=== PATIENT | female | born 2000 | race Caucasian/White ===

== ENCOUNTER → 2018-02-23 22:14 | Observation (INO) ==
[2018-02-23 19:55] VITALS: BP 111/62
[2018-02-23 20:08] LABS: Bilirubin,Urine Negative (Negative); Blood,Urine Negative (Negative); Clarity,Urine Cloudy (Clear); Color,Urine Yellow (Yellow); Glucose,Urine (UA) Normal (Normal); Ketones,Urine Trace mg/dL (Negative); Leukocyte Esterase,Urine Trace (Negative); Nitrite,Urine Negative (Negative); PH,Urine 6.5 pH Units (5.0-8.0); Protein,Urine Negative (Neg-Trace); Specific Gravity,Urine 1.023 (1.010-1.025); Urobilinogen,Urine Normal (Normal)
[2018-02-23 20:10] LABS: Bacteria,Urine None Seen per hpf (None-Few); Hyaline Casts,Urine None Seen per lpf (None-Few); Squamous Epithelial Cell,Urine Many per lpf (None-Few)
[2018-02-23 21:16] LABS: Amphetamine Screen,Urine Negative ng/mL (Cutoff=1000); Barbiturate Screen,Urine Negative ng/mL (Cutoff=200); Benzodiazepines Screen,Urine Negative ng/mL (Cutoff=200); Cannabinoid Screen,Urine Negative ng/mL (Cutoff = 50); Cocaine Screen,Urine Negative ng/mL (Cutoff= 300); Opiate Screen,Urine Negative ng/mL (Cutoff=300); Phencyclidine Screen,Urine Negative ng/mL (Cutoff=25)
--- NOTE | 2018-02-23 22:05 | OB/GYN Progress Note ---
Date of Encounter: 02/23/18 Time of Encounter: 22:03 - Assessment and Plan (1) 30 weeks gestation of Current Visit: Yes Status: Acute Follow-up in office as scheduled labor precautions given Discharge home (2) PUPP (pruritic urticarial papules and plaques of ) Current Visit: Yes Status: Acute Prescription for prednisone taper given (3) Vaginal candidiasis Current Visit: Yes Status: Acute Prescription for Monistat given (4) [place] contractions Current Visit: Yes Status: Acute (5) NST (non-stress test) reactive on surveillance Current Visit: Yes Status: Acute Subjective - Subjective Principal diagnosis: vaginal candidiasis/PEP Interval history: Ms. Benson is a 18-year-old G1 who presents at 30 weeks gestation with complaints of a rash on her belly that is spreading to her stretch spears. She has previously been diagnosed with PEP and has tried oral Benadryl and over-the- counter cortisone cream without relief. She also complains of BHC 2 weeks. She also complains of right-sided pelvic pain. She also complains of leakage of fluid for the last 2-3 days without an odor. She endorses good movement and denies vaginal bleeding. Antepartum ROS: new complaints, loss of fluid, movement normal, contractions, no vaginal bleeding Objective - Vital Signs Vital Signs: Vital Signs Temp Pulse Resp BP 02/23/18 19:50 99.0 F 95 15 111/62 Intake and Output 02/23/18 02/23/18 02/23/18 07:59 15:59 23:59 Other: Weight 88.5 kg Patient Weight 02/23/18 23:59 Weight 88.5 kg - Exam FHR: category 1 FHR comments: Baseline 140 Moderate variability Accelerations present 15 x 15 Rare variable decelerations FHR category I [place] contraction every 7-10 minutes. Patient reports she feels only about 1 every 20-30 minutes Auscultation: bilateral: normal Abdomen: Present: normal appearance, soft, gravid Uterus: Present: normal, firm - Labs Labs: Abnormal lab results Urine Clarity Cloudy (Clear) A 02/23/18 19:57 Urine Ketones Trace mg/dL (Negative) H 02/23/18 19:57 Ur Leukocyte Esterase Trace (Negative) H 02/23/18 19:57 Urine Microscopic RBC 3-5 per hpf (0-3) H 02/23/18 19:57 Urine Microscopic WBC 3-5 per hpf (0-3) H 02/23/18 19:57 Ur Squamous Epith Cells Many per lpf (None-Few) H 02/23/18 19:57 Ur Culture Indicated? NO. (NO) A 02/23/18 19:57
== END | disposition home or self-care (01) ==
LOC: 1NENULAB
PROVIDERS: ADMIT Advanced Practice Midwife; ATTEND Advanced Practice Midwife

== ENCOUNTER 2018-04-05 14:35 | Observation (INO) ==
[2018-04-05 15:32] LABS: Bilirubin,Urine Negative (Negative); Blood,Urine Negative (Negative); Clarity,Urine Clear (Clear); Color,Urine Yellow (Yellow); Glucose,Urine (UA) Normal (Normal); Ketones,Urine Negative (Negative); Leukocyte Esterase,Urine Trace (Negative); Nitrite,Urine Negative (Negative); PH,Urine 6.5 pH Units (5.0-8.0); Protein,Urine Negative (Neg-Trace); Specific Gravity,Urine 1.016 (1.010-1.025); Urobilinogen,Urine Normal (Normal)
[2018-04-05 15:38] LABS: Bacteria,Urine Few per hpf (None-Few); Hyaline Casts,Urine None Seen per lpf (None-Few); RBC,Urine 0-3 per hpf (0-3); Squamous Epithelial Cell,Urine Many per lpf (None-Few)
[2018-04-05 15:54] LABS: Amphetamine Screen,Urine Negative ng/mL (Cutoff=1000); Barbiturate Screen,Urine Negative ng/mL (Cutoff=200); Benzodiazepines Screen,Urine Negative ng/mL (Cutoff=200); Cannabinoid Screen,Urine Negative ng/mL (Cutoff = 50); Cocaine Screen,Urine Negative ng/mL (Cutoff= 300); Opiate Screen,Urine Negative ng/mL (Cutoff=300); Phencyclidine Screen,Urine Negative ng/mL (Cutoff=25)
--- NOTE | 2018-04-05 17:13 | OB/GYN Progress Note ---
Date of Encounter: 04/05/18 Time of Encounter: 17:11 - Assessment and Plan (1) Encounter for suspected PROM, with rupture of membranes not found Status: Acute Nitrazine negative, ferning negative, cervix closed, no painful contractions during triage evaluation. Discharged home with labor and when to return to triage precautions. Patient verbalizes understanding (2) 36 weeks gestation of Status: Acute Subjective - Subjective Interval history: 36+0 weeks gestation presents to triage with complaints of contractions and leaking of fluid. Since states she has been having irregular tightening with occasional back pain is early this morning. On the way here patient states she noted a small amount of leaking of fluid but none further. Reports good movement, denies vaginal bleeding Antepartum ROS: loss of fluid, movement normal, contractions, no vaginal bleeding Objective - Vital Signs Vital Signs: Intake and Output 04/05/18 04/05/18 04/05/18 07:59 15:59 23:59 Other: Weight 92.1 kg Patient Weight 04/05/18 23:59 Weight 92.1 kg - Exam FHR: auscultation normal FHR comments: Baseline 135 Abdomen: Present: normal appearance, soft, gravid Cervical dilation: Closed - Labs Labs: Abnormal lab results Ur Leukocyte Esterase Trace (Negative) H 04/05/18 15:15 Urine Microscopic WBC 3-5 per hpf (0-3) H 04/05/18 15:15 Ur Squamous Epith Cells Many per lpf (None-Few) H 04/05/18 15:15 Ur Culture Indicated? NO. (NO) A 04/05/18 15:15
== END 2018-04-05 16:27 | disposition home or self-care (01) ==
LOC: 1NENULAB
PROVIDERS: ADMIT Obstetrics & Gynecology; ATTEND Obstetrics & Gynecology

== ENCOUNTER 2018-04-27 11:42 | Inpatient (IN) ==
[2018-04-27] MEDS ORDERED: miSOPROStol 25 MCG TABLET PO PRN (11:55)
[2018-04-27] MEDS ORDERED: Metoclopramide 10 MG/2 ML VIAL IVP PRN (11:55)
[2018-04-27] MEDS ORDERED: Naloxone 0.4 MG/ML INJ IVP PRN (11:55)
[2018-04-27] MEDS ORDERED: Famotidine 20 MG/2 ML VIAL IVP PRN (11:55)
[2018-04-27 13:11] LABS: Amphetamine Screen,Urine Negative ng/mL (Cutoff=1000); Barbiturate Screen,Urine Negative ng/mL (Cutoff=200); Benzodiazepines Screen,Urine Negative ng/mL (Cutoff=200); Cannabinoid Screen,Urine Negative ng/mL (Cutoff = 50); Cocaine Screen,Urine Negative ng/mL (Cutoff= 300); Opiate Screen,Urine Negative ng/mL (Cutoff=300); Phencyclidine Screen,Urine Negative ng/mL (Cutoff=25)
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
[2018-04-27 13:23] LABS: Basophils # 0.1 K/mcL (0.0-0.2); Basophils % 0.5 %; Eosinophils # 0.1 K/mcL (0.0-0.6); Eosinophils % 0.6 %; Hematocrit 35.5 % (35.3-44.9); Hemoglobin 12.1 g/dL (11.5-15.4); Immature Granulocytes % 2.5 % (0-4); Lymphocytes # 2.5 K/mcL (0.6-4.6); Lymphocytes % 17.9 %; Mean Corpuscular HGB Conc 34.1 g/dL (31.6-35.5); Mean Corpuscular Hemoglobin 29.7 pg (28.0-33.3); Mean Platelet Volume 11.2 fL (9.4-12.4); Monocytes # 1.1 K/mcL (0.0-1.3); Monocytes % 7.8 %; Neutrophils # 9.9 K/mcL (1.6-8.9); Platelet Count 231 K/mcL (140-400); Red Blood Count 4.08 M/mcL (3.82-4.97); Red Cell Distribution Width 14.8 % (11.5-14.5); Segmented Neutrophils % 70.7 %
[2018-04-27] MEDS: Ringers Solution, Lactated 1,000 ML IVC SCH (13:50)
[2018-04-27] MEDS ORDERED: Oxytocin 20 units/ LR 1000 mL 20 UNIT/1,000 ML BAG IVC SCH (21:15)
[2018-04-27] MEDS: Ondansetron 4 MG/2 ML VIAL IVP PRN (21:21)
[2018-04-27] MEDS: *HR* Nalbuphine 10 MG/ML AMPUL IVP PRN (21:25)
[2018-04-28] MEDS: *HR* Nalbuphine 10 MG/ML AMPUL IVP PRN (01:50)
[2018-04-28] MEDS: Ondansetron 4 MG/2 ML VIAL IVP PRN (03:33)
[2018-04-28] MEDS: Ringers Solution, Lactated 1,000 ML IVC SCH ×3 (03:34→13:10)
[2018-04-28] MEDS ORDERED: *HR* FentaNYL (PF) 100 MCG/2 ML VIAL ONE (04:20)
[2018-04-28] MEDS ORDERED: Bupivacaine-MPF 0.25% 10 ML VIAL ONE (04:20)
[2018-04-28] MEDS ORDERED: Epidural Premix (fent/bupiv) 110 ML EP ONE (04:23)
[2018-04-28] MEDS ORDERED: Lidocaine -MPF 1% 5 ML AMPUL ONE (04:30)
[2018-04-28] MEDS ORDERED: Bupivacaine-MPF 0.25% 10 ML VIAL EP ONE (04:52)
[2018-04-28] MEDS ORDERED: *HR* FentaNYL (PF) 100 MCG/2 ML VIAL EP ONE (04:52)
--- NOTE | 2018-04-28 04:55 | Anesthesia Evaluation PreOp ---
Date of Encounter: 04/28/18 Time of Encounter: 04:30 - Past History Planned Operation: Labor Epidural Cardiac History: Denies any Significant Hx Pulmonary History: Denies Any Significant HX SYNCHRONOUS MOTOR ASSEMBLER History: Denies Any Significant HX Other Medical History: Denies Any Significant HX Anesthesia History: No Prior Anesthetic Complications : Yes (39 weeks ) Alcohol Use: none Drug use: none Medications and Allergies [place] 2 tab PO DAILY 04/05/18 [History] Zofran ODT 4 mg PO PRN PRN 04/05/18 [History] 3 Allergy/AdvReac Type Severity Reaction Status Date / Time No Known Allergies Allergy Verified 04/27/18 12:11 - Meds/Allergy Pre-op Review Medications Reviewed: Yes Allergies Reviewed: Yes Beta Blockers on Current Med List: No Anesthesia Results - Labs 04/27/18 13:07 Laboratory Tests 01/07/18 04/27/18 02:24 13:07 Hgb 12.1 Hct 35.5 Plt Count 231 Sodium 140 Potassium 3.8 BUN 5 L Creatinine 0.52 L Anesthesia Exam O2 Sat Height 1.65 m Weight 94.7 kg Height: 5'5 Weight: 208 lbs NPO (# of Hours): MN Pain Scale: 0 - HEENT Pupil (Motor): Pupils equal, EOMI Mallampati: II Teeth: Normal Oral Opening: Greater than 3 - SYNCHRONOUS MOTOR ASSEMBLER LOC: Oriented SYNCHRONOUS MOTOR ASSEMBLER Motor: Normal RUE, Normal LUE, Normal RLE, Normal LLE, Normal Face SYNCHRONOUS MOTOR ASSEMBLER Sensory: Normal: RUE, LUE, RLE, LLE, Face - Cardiac Rhythm: Regular Murmur: None JVD: No Carotid Bruit: No - Pulmonary Breath Sounds: bilateral Clear Respiratory Effort: Symmetrical Anesthesia Assess/Plan ASA Score: 2 Modified Halliday Scale for Level of Consciousness: Cooperative, oriented, and tranquil Anesthetic Plan: Regional Monitoring Plan: Standard Monitors Recovery Plan: Other (Discussed LE, risks and benefits, agrees to proceed)
--- NOTE | 2018-04-28 04:58 | Anesthesia Procedures ---
Date of Encounter: 04/28/18 Time of Encounter: 04:30 Procedures: Anesthesia - Epidural/Spinal Patient ID/Chart reviewed: Yes Patient examined: Yes OB Eval: Gestational age: 39 weeks OB Eval: : 1 OB Eval: Hx Para: 0 OB Eval: Dilated at (cm): 4 OB Eval: Contractions: Non-stressed pattern Consent Obtained: Yes Supplemental Oxygen: None/Room Air Site Prep: Aseptic Technique, Sterile prep and drape, Povidone-Iodine 1% Patient position: upright Local Anesthetic: Lidocaine 1% Amount of Local Anesthetic used: 3 Touhy Needle Gauge: 19 Touhy Needle Depth (cm): 4 Catheter Depth at Skin (cm): 5 Test Dose Result: Negative Loading Dose: 0.25% Marcaine (mls): 10 Loading Dose: Fentanyl (mcg): 100 Loading Dose Administered: Thru Touhy Needle Infusion Med: 0.125% Bupivacaine w/ 2 mcg/ml Fentanyl Infusion Rate (mls/hr): [address]: Tegaderm Interspace Used: L3-L4 Loss of Resistance (FLAQUITA): Yes Blood: No CSF: No Paresthesia: No Procedure: Patient sitting, sterile prep and drape, midline Patient tolerated procedure well
[2018-04-28] MEDS ORDERED: Epidural Premix (fent/bupiv) 110 ML EP SCH (05:00)
[2018-04-28] MEDS ORDERED: Mag Hydrox/Al Hydrox/Simeth 30 ML UDC PO PRN (06:17)
--- NOTE | 2018-04-28 12:02 | OB Labor Progress Note ---
Date of Encounter: 04/28/18 Time of Encounter: 12:05 Labor Progress Note - Subjective Subjective: Pt comfortable with epidural. - Cervix Cervix: 6/80/-2 - Heart Tones Heart Tones: FHR Category I - [place]: Contractions every 3-5 minutes and palpate strong - Interventions Interventions: AROM - large amount of clear fluid IUPC placed - Plan Plan: Increase pitocin to adequate contraction pattern. Continue position changes with peanut ball Anticipate
--- NOTE | 2018-04-28 18:14 | OB/GYN Procedure Note ---
Delivery - Delivery Date: 04/28/18 Provider: Leanna Cornejo Intrapartum events: prolonged labor- > = 20hr Delivery induction: oxytocin, misoprostol Delivery augmentation: rupture of membranes Delivery monitor: external FHT, external uterine, internal uterine Anesthesia: epidural Quantitated Blood Loss: 400 - Infant (s) Infant A Delivery Date: 04/28/18 Infant Delivery Time: 17:33 Presentation: vertex Position: OA Route of delivery: Gender: Female Viability: Viable Pounds: 9 Ounces: 6 Weight Gram: 4.255 kg at 1 minute: 8 at 5 mins: 9 Shoulder Dystocia: not encountered Specimens collected: cord blood Placenta: spontaneous Cord: 3 umbilical vessels - Repair Episiotomy: none Laceration Description: Periurethral (hemostatic), Vaginal (left - repaired with 3.0; right vaginal hemostatic) - Complications Delivery complications: none Delivery comments: This is a 18-year-old G1 now P1 who was admitted for induction of labor secondary to suspected macrosomia. She progressed with Pitocin augmentation and AROM to the second stage of labor. She pushed for an hour and a half. She delivered a viable, female infant, "Domi", direct OA over an intact perineum. The infant was placed on the maternal abdomen where the mouth and nares were bulb suctioned by nursery RN. The cord was clamped by test fixture assembler and cut by FOB after pulsations ceased. No nuchal cord was identified and no shoulder dystocia was encountered. scores were 8 at 1 minute and 9 at 5 minutes. The weighed 9 lbs. 6 oz. (4255g). The placenta delivered spontaneously, intact, with a three-vessel cord. Inspection revealed a left vaginal laceration requiring repair and a right vaginal laceration that was hemostatic. The left vaginal laceration was repaired with a 3-0 Vicryl. The uterus was firm with no active bleeding. The repair was done under epidural anesthesia. EBL was 400 mL. Placenta and umbilical artery blood gas were not sent. There were no complications during the procedure. Mom and baby are skin to skin following delivery. - Disposition Mom disposition: stable in LDR [place] disposition: stable in LDR
[2018-04-28] MEDS ORDERED: Rho Immune Globulin 1,500 UNIT SYRINGE IM PRN (20:21)
[2018-04-28] MEDS ORDERED: Acetaminophen 325 MG TABLET PO PRN (20:21)
[2018-04-28] MEDS ORDERED: Sennosides 8.6 MG TABLET PO PRN (20:21)
[2018-04-28] MEDS ORDERED: Benzocaine/Menthol 56 GM AEROSOL SPRAY TP PRN (20:21)
[2018-04-28] MEDS ORDERED: Oxytocin 20 units/ LR 1000 mL 20 UNIT/1,000 ML BAG IVC SCH (20:21)
[2018-04-28] MEDS: Ibuprofen 600 MG TABLET PO SCH (21:05)
[2018-04-28] MEDS: *HR* HYDROcodone/Acet 5/325 mg TABLET PO PRN (23:40)
[2018-04-29] MEDS: Ibuprofen 600 MG TABLET PO SCH (03:46)
[2018-04-29 07:29] LABS: Basophils # 0.1 K/mcL (0.0-0.2); Basophils % 0.3 %; Eosinophils # 0.1 K/mcL (0.0-0.6); Eosinophils % 0.6 %; Hematocrit 35.8 % (35.3-44.9); Immature Granulocytes % 0.9 % (0-4); Lymphocytes # 3.1 K/mcL (0.6-4.6); Lymphocytes % 16.4 %; Mean Corpuscular HGB Conc 33.5 g/dL (31.6-35.5); Mean Corpuscular Hemoglobin 29.3 pg (28.0-33.3); Mean Corpuscular Volume 87.5 fL (83.0-100.0); Mean Platelet Volume 11.3 fL (9.4-12.4); Monocytes # 1.9 K/mcL (0.0-1.3); Monocytes % 10.3 %; Neutrophils # 13.4 K/mcL (1.6-8.9); Platelet Count 235 K/mcL (140-400); Red Blood Count 4.09 M/mcL (3.82-4.97); Segmented Neutrophils % 71.5 %
[2018-04-29] MEDS: *HR* HYDROcodone/Acet 5/325 mg TABLET PO PRN ×2 (08:45→15:58)
[2018-04-29] MEDS ORDERED: Prenatal Vit/FA 1 EACH TABLET PO SCH (09:00)
--- NOTE | 2018-04-29 10:57 | Discharge Summary ---
Date of Encounter: 04/29/18 Time of Encounter: 10:55 - Discharge Diagnosis (1) Vaginal delivery Priority: Primary Status: Acute Comments: Pain well controlled with by mouth pain meds Vital signs stable Ambulating independently Voiding independently Passing flatus, no BM yet Tolerating regular diet Lochia medium Discharge home today (2) Breast feeding status of mother Priority: Secondary Status: Acute Comments: Community resources provided - Discharge Medications Prescriptions: HYDROcodone/Acet 5/325 mg [[place] 5-325 mg] 1 tab PO Q6HR PRN 2 Days #8 tablet PRN Reason: Moderate Pain (4-6) Ibuprofen [Motrin] 600 mg PO Q6HR #30 tablet Docusate [Colace] 100 mg PO BID #30 capsule Home Medications: [place] 2 tab PO DAILY 04/05/18 [History] Acetaminophen [Tylenol] 650 mg PO Q6HR PRN tablet 04/29/18 [Rx] Benzocaine/Menthol [place] [Dermoplast [place]] 1 appl TP QID PRN aerosol 04/29/18 [Rx] Docusate [Colace] 100 mg PO BID #30 capsule 04/29/18 [Rx] HYDROcodone/Acet 5/325 mg [[place] 5-325 mg] 1 tab PO Q6HR PRN 2 Days #8 tablet [Rx] Ibuprofen [Motrin] 600 mg PO Q6HR #30 tablet 04/29/18 [Rx] Allergies/Adverse Reactions: 3 Allergy/AdvReac Type Severity Reaction Status Date / Time No Known Allergies Allergy Verified 04/27/18 12:11 Data Procedures and tests throughout hospitalization: Laboratory Tests 04/27/18 04/27/18 04/29/18 12:33 13:07 07:00 WBC 13.9 H 18.7 H RBC 4.08 4.09 Hgb 12.1 12.0 Hct 35.5 35.8 MCV 87.0 87.5 MCH 29.7 29.3 MCHC 34.1 33.5 RDW 14.8 H 15.0 H Plt Count 231 235 MPV 11.2 11.3 Immature Gran % 2.5 0.9 Seg Neutrophils % 70.7 71.5 Lymphocytes % 17.9 16.4 Monocytes % 7.8 10.3 Eosinophils % 0.6 0.6 Basophils % 0.5 0.3 Neutrophils # 9.9 H 13.4 H Lymphocytes # 2.5 3.1 Monocytes # 1.1 1.9 H Eosinophils # 0.1 0.1 Basophils # 0.1 0.1 Urine Opiates Screen Negative Ur Barbiturates Screen Negative Ur Phencyclidine Scrn Negative Ur Amphetamines Screen Negative U Benzodiazepines Scrn Negative Urine Cocaine Screen Negative U Marijuana (THC) Screen Negative Ur Drug Screen Interp See Below Labs on day of discharge: Labs from last 24 hours 04/29/18 07:00 WBC 18.7 H RBC 4.09 Hgb 12.0 Hct 35.8 MCV 87.5 MCH 29.3 MCHC 33.5 RDW 15.0 H Plt Count 235 MPV 11.3 Immature Gran % 0.9 Seg Neutrophils % 71.5 Lymphocytes % 16.4 Monocytes % 10.3 Eosinophils % 0.6 Basophils % 0.3 Neutrophils # 13.4 H Lymphocytes # 3.1 Monocytes # 1.9 H Eosinophils # 0.1 Basophils # 0.1 Date of admission: 04/27/18 11:42 Primary care physician: Temo Siegel CNP Consults: 04/28/18 20:21 Consult to Steward/Stewardess Third [CONS] Routine Comment: Vaginal delivery, consult needed Discharging clinician: Leanna Cornejo Anticipated date of discharge: 04/29/18 - Patient Status Disposition: Home, Self-Care Condition: Good Functional capacity at discharge: independent ambulation Overall status at discharge: patient is progressing back to baseline - Discharge Instructions Follow Up With: Kim Zepeda CNM [Non-Partnered Physician] - 05/29/18 4:00 pm - Diet and Activity Activity: increase activity as tolerated Diet: regular diet Hospital Course Procedures: Reason for admission: induction of labor, IUP at term Delivery: Episiotomy: none Laceration: vaginal side wall Other procedures: none complications: none Discharge diagnosis: IUP at term delivered baby: female Time Attestation: Total time spent providing and/or coordinating discharge services: Time Spent: Less than 30 minutes Exam - Constitutional Vitals: Temp Pulse Resp BP Pulse Ox 98.2 F 100 16 86/63 97 04/29/18 09:06 04/29/18 09:06 04/29/18 09:06 04/29/18 09:06 08/05/18 09:06 General appearance IM: A&O X 3 - Respiratory Respiratory exam: Present: CTAB - Cardiovascular Cardiovascular exam IM: Present: RRR, +S1, +S2 - GI/Abdominal GI/Abdominal exam IM: normal bowel sounds, no peritoneal signs - Rectal Rectal exam: deferred - Uterine Tone: Firm Uterus Position: 1 Finger Below Umbilicus, Midline - Extremities Exam Extremities exam IM: Present: normal capillary refill, normal inspection, pedal edema, radial pulses palpable and symmetrical - Neurological Exam Neurological exam: alert, CN II-XII intact, normal gait, oriented X3, reflexes normal, strengths equal and symetr throughout - Psychiatric Additional comments: S/sx of PPD discussed with patient and she verbalizes understanding of when to call for help. - Other Additional findings: Breasts: soft, nontender. Nipples intact without erythema.
[2018-04-29 16:27] VITALS: BP 102/73
== END 2018-04-29 17:38 | disposition home or self-care (01) | DRG 775 ==
LOC: 1NENULAB 11:42 → 1NENUOBS 04-28 21:09
PROVIDERS: ADMIT Obstetrics & Gynecology; ATTEND Obstetrics & Gynecology

== ENCOUNTER → 2021-03-04 12:20 | Observation (INO) ==
[2021-03-04 01:27] LABS: Bacteria,Urine Few per hpf (None-Few); Bilirubin,Urine Negative (Negative); Blood,Urine Negative (Negative); Clarity,Urine Turbid (Clear); Color,Urine Light-Yellow (Yellow); Glucose,Urine (UA) Normal (Normal); Ketones,Urine Negative (Negative); Leukocyte Esterase,Urine Moderate (Negative); Mucus,Urine Few per lpf (None-Few); Nitrite,Urine Negative (Negative); Protein,Urine Negative (Neg-Trace); RBC,Urine 0-3 per hpf (0-3); Specific Gravity,Urine 1.009 (1.010-1.025); Squamous Epithelial Cell,Urine Moderate per hpf (None-Few); Transitional Epi Cells,Urine Few per hpf (None-Few); Urobilinogen,Urine Normal (Normal); WBC,Urine 0-3 per hpf (0-3)
[2021-03-04 02:34] LABS: Basophils # 0.1 K/mcL (0.0-0.2); Basophils % 0.4 %; Eosinophils # 0.2 K/mcL (0.0-0.6); Hemoglobin 11.1 g/dL (11.5-15.4); Immature Granulocytes % 2.1 % (0-4); Lymphocytes # 2.9 K/mcL (0.6-4.6); Lymphocytes % 18.4 %; Mean Corpuscular HGB Conc 32.6 g/dL (31.6-35.5); Mean Corpuscular Hemoglobin 30.5 pg (28.0-33.3); Mean Corpuscular Volume 93.4 fL (83.0-100.0); Mean Platelet Volume 10.8 fL (9.4-12.4); Monocytes # 1.1 K/mcL (0.0-1.3); Neutrophils # 11.1 K/mcL (1.6-8.9); Platelet Count 193 K/mcL (140-400); Red Blood Count 3.64 M/mcL (3.82-4.97); Red Cell Distribution Width 13.9 % (11.5-14.5); Segmented Neutrophils % 71.1 %; White Blood Count 15.7 K/mcL (4.3-11.1)
[2021-03-04 02:52] LABS: Trichomonas DNA Not Detected (Not Detect)
[2021-03-04 02:53] LABS: Candida DNA Not Detected (Not Detect); Gardnerella DNA Not Detected (Not Detect)
[2021-03-04 02:54] LABS: Alanine Aminotransferase 7 Units/L (7-52); Albumin 3.4 g/dL (3.5-5.7); Albumin/Globulin Ratio 1.4 (1.1-2.2); Alkaline Phosphatase 44 Units/L (34-104); Aspartate Amino Transferase 10 Units/L (13-39); BUN/Creatinine Ratio 9 (6-26); Bilirubin,Total 0.3 mg/dL (0.3-1.0); Blood Urea Nitrogen 4 mg/dL (6-20); Calcium 8.8 mg/dL (8.6-10.3); Carbon Dioxide 21 mEq/L (23-29); Chloride 110 mEq/L (98-107); Globulin 2.5 g/dL (2.4-3.5); Glucose 93 mg/dL (70-105); Osmolality,Calculated 283 (280-300); Potassium 3.4 mEq/L (3.5-5.1); Sodium 138 mEq/L (136-145); Total Protein 5.9 g/dL (6.4-8.9); eGFR For African Americans > 60 (> 60); eGFR For Non-African Americans > 60 (> 60)
[~2021-03-04 12:20] MED LIST: Indomethacin 25 MG CAPSULE PO ONE; Indomethacin 25 MG CAPSULE PO SCH; NIFEdipine Immed Rel 10 MG CAPSULE PO ONE; Ringers Solution, Lactated 1,000 ML IVC ONE; Ringers Solution, Lactated 1,000 ML ONE; Terbutaline 1 MG/ML VIAL SQ ONE
== END | disposition home or self-care (01) ==
LOC: 1NENULAB
PROVIDERS: ADMIT Registered Nurse; ATTEND Registered Nurse

== ENCOUNTER → 2021-03-21 22:43 | Observation (INO) ==
[2021-03-21 21:40] LABS: Bacteria,Urine Few per hpf (None-Few); Bilirubin,Urine Negative (Negative); Blood,Urine Negative (Negative); Calcium Oxalate Crystals,Urine Present per hpf; Clarity,Urine Turbid (Clear); Color,Urine Light-Yellow (Yellow); Glucose,Urine (UA) Normal (Normal); Ketones,Urine Negative (Negative); Leukocyte Esterase,Urine Small (Negative); Mucus,Urine Few per lpf (None-Few); Nitrite,Urine Negative (Negative); PH,Urine 6.5 pH Units (5.0-8.0); Protein,Urine Trace mg/dL (Neg-Trace); RBC,Urine 0-3 per hpf (0-3); Specific Gravity,Urine 1.019 (1.010-1.025); Squamous Epithelial Cell,Urine Few per hpf (None-Few); Urobilinogen,Urine Normal (Normal)
[~2021-03-21 22:43] MED LIST changes: +Betamethasone Acet/SodPhos 30 MG/5 ML VIAL IM SCH; -Indomethacin 25 MG CAPSULE PO ONE; -Indomethacin 25 MG CAPSULE PO SCH; -NIFEdipine Immed Rel 10 MG CAPSULE PO ONE; -Ringers Solution, Lactated 1,000 ML IVC ONE; -Ringers Solution, Lactated 1,000 ML ONE
== END | disposition home or self-care (01) ==
LOC: 1NENULAB
PROVIDERS: ADMIT Advanced Practice Midwife; ATTEND Advanced Practice Midwife

== ENCOUNTER → 2021-04-17 01:22 | Observation (INO) ==
[2021-04-17 00:22] LABS: Bacteria,Urine Few per hpf (None-Few); Bilirubin,Urine Negative (Negative); Blood,Urine Negative (Negative); Budding Yeast,Urine Few per hpf (None Seen); Calcium Oxalate Crystals,Urine Present per hpf; Clarity,Urine Turbid (Clear); Color,Urine Yellow (Yellow); Glucose,Urine (UA) Normal (Normal); Ketones,Urine Negative (Negative); Leukocyte Esterase,Urine Small (Negative); Mucus,Urine Few per lpf (None-Few); Nitrite,Urine Negative (Negative); PH,Urine 6.5 pH Units (5.0-8.0); Protein,Urine Trace mg/dL (Neg-Trace); Specific Gravity,Urine 1.022 (1.010-1.025); Squamous Epithelial Cell,Urine Few per hpf (None-Few)
[~2021-04-17 01:22] MED LIST changes: -Betamethasone Acet/SodPhos 30 MG/5 ML VIAL IM SCH; +Fluconazole 150 MG TABLET PO ONE; -Terbutaline 1 MG/ML VIAL SQ ONE; +hydrOXYzine pamoate 25 MG CAPSULE PO PRN
== END | disposition home or self-care (01) ==
LOC: 1NENULAB
PROVIDERS: ADMIT Registered Nurse; ATTEND Registered Nurse

== ENCOUNTER → 2021-04-29 21:28 | Observation (INO) ==
[2021-04-29 18:57] LABS: Basophils # 0.1 K/mcL (0.0-0.2); Basophils % 0.4 %; Eosinophils # 0.1 K/mcL (0.0-0.6); Eosinophils % 0.7 %; Hematocrit 34.6 % (35.3-44.9); Immature Granulocytes % 1.4 % (0-4); Lymphocytes # 2.7 K/mcL (0.6-4.6); Lymphocytes % 16.3 %; Mean Corpuscular HGB Conc 31.8 g/dL (31.6-35.5); Mean Corpuscular Hemoglobin 28.9 pg (28.0-33.3); Mean Corpuscular Volume 91.1 fL (83.0-100.0); Mean Platelet Volume 11.3 fL (9.4-12.4); Monocytes # 1.2 K/mcL (0.0-1.3); Monocytes % 7.2 %; Neutrophils # 12.4 K/mcL (1.6-8.9); Platelet Count 263 K/mcL (140-400); Red Cell Distribution Width 15.2 % (11.5-14.5); White Blood Count 16.7 K/mcL (4.3-11.1)
[~2021-04-29 21:28] MED LIST changes: +*HR* Nalbuphine 10 MG/ML AMPUL IM STA; +*HR* Promethazine 25 MG/ML VIAL IM ONE; -Fluconazole 150 MG TABLET PO ONE; +Ringers Solution, Lactated 1,000 ML IVC ONE; -hydrOXYzine pamoate 25 MG CAPSULE PO PRN
== END | disposition home or self-care (01) ==
LOC: 1NENULAB
PROVIDERS: ADMIT Advanced Practice Midwife; ATTEND Advanced Practice Midwife

== ENCOUNTER 2021-05-02 08:05 | Inpatient (IN) ==
[~2021-05-02 08:05] MED LIST changes: -*HR* Nalbuphine 10 MG/ML AMPUL IM STA; +*HR* Nalbuphine 10 MG/ML AMPUL IV PRN; -*HR* Promethazine 25 MG/ML VIAL IM ONE; +EPHEDrine 50 MG/ML VIAL IVP PRN; +Epidural Premix (fent/bupiv) 110 ML EP SCH; +Famotidine 20 MG/2 ML VIAL IVP PRN; +Metoclopramide 10 MG/2 ML VIAL IVP PRN; +Naloxone 0.4 MG/ML INJ IVP PRN; +Ondansetron 4 MG/2 ML VIAL IVP PRN; -Ringers Solution, Lactated 1,000 ML IVC ONE
[2021-05-02] MEDS ORDERED: Penicillin G Potassium 5,000,000 UNIT in 0.9 % Sodium Chloride Mini Bag 100 ML IVPB ONE (08:07)
[2021-05-02] MEDS ORDERED: Ringers Solution, Lactated 1,000 ML IVC SCH (08:15)
[2021-05-02 08:42] LABS: Hematocrit 33.9 % (35.3-44.9); Hemoglobin 10.7 g/dL (11.5-15.4); Mean Corpuscular HGB Conc 31.6 g/dL (31.6-35.5); Mean Corpuscular Hemoglobin 28.8 pg (28.0-33.3); Mean Corpuscular Volume 91.4 fL (83.0-100.0); Mean Platelet Volume 11.4 fL (9.4-12.4); Platelet Count 256 K/mcL (140-400); Red Blood Count 3.71 M/mcL (3.82-4.97); Red Cell Distribution Width 15.4 % (11.5-14.5); White Blood Count 15.9 K/mcL (4.3-11.1)
[2021-05-02] MEDS ORDERED: Oxytocin 20 units/ LR 1000 mL 20 UNIT/1,000 ML BAG IVC SCH ×2 (09:00→22:35)
[2021-05-02] MEDS ORDERED: Ropivacaine/PF 0.2% 20 ML VIAL EP ONE (09:50)
[2021-05-02] MEDS ORDERED: *HR* FentaNYL (PF) 100 MCG/2 ML VIAL EP ONE (09:50)
[2021-05-02] MEDS: Ondansetron 4 MG/2 ML VIAL IVP PRN ×2 (11:41→19:15)
[2021-05-02] MEDS ORDERED: *HR* FentaNYL (PF) 100 MCG/2 ML VIAL ONE ×2 (12:57→17:37)
[2021-05-02] MEDS ORDERED: Ropivacaine/PF 0.2% 20 ML VIAL ONE (12:57)
[2021-05-02] MEDS: Penicillin G Potassium 2,500,000 UNIT/105 ML MLS IVPB SCH ×2 (13:27→17:24)
[2021-05-02] MEDS ORDERED: Acetaminophen 325 MG TABLET PO PRN (22:35)
[2021-05-02] MEDS ORDERED: Rho Immune Globulin 1,500 UNIT SYRINGE IM PRN (22:35)
[2021-05-02] MEDS ORDERED: Benzocaine/Menthol 56 GM AEROSOL SPRAY TP PRN (22:35)
[2021-05-02] MEDS ORDERED: Measles/Mumps/Rubella Vacc 0.5 ML VIAL SQ PRN (22:35)
[2021-05-02] MEDS ORDERED: Lanolin 7 G OINT...G. TP PRN (22:35)
[2021-05-02] MEDS: Ibuprofen 600 MG TABLET PO PRN (22:53)
[2021-05-02] MEDS: *HR* HYDROcodone/Acet 5/325 mg TABLET PO PRN (23:53)
[2021-05-03] MEDS: Ibuprofen 600 MG TABLET PO PRN ×2 (07:46→15:52)
[2021-05-03] MEDS ORDERED: Prenatal Vit/FA 1 EACH TABLET PO SCH (09:00)
[2021-05-03] MEDS: *HR* HYDROcodone/Acet 5/325 mg TABLET PO PRN (10:54)
[2021-05-03 16:08] VITALS: BP 97/62; PULSE 76; TEMP 98; O2SAT 98
[2021-05-03 17:26] LABS: Basophils # 0.1 K/mcL (0.0-0.2); Basophils % 0.7 %; Eosinophils # 0.2 K/mcL (0.0-0.6); Eosinophils % 1.9 %; Hematocrit 32.7 % (35.3-44.9); Hemoglobin 10.4 g/dL (11.5-15.4); Immature Granulocytes % 1.5 % (0-4); Lymphocytes # 2.7 K/mcL (0.6-4.6); Lymphocytes % 23.5 %; Mean Corpuscular HGB Conc 31.8 g/dL (31.6-35.5); Mean Corpuscular Hemoglobin 28.3 pg (28.0-33.3); Mean Corpuscular Volume 88.9 fL (83.0-100.0); Mean Platelet Volume 11.5 fL (9.4-12.4); Monocytes # 0.8 K/mcL (0.0-1.3); Neutrophils # 7.6 K/mcL (1.6-8.9); Platelet Count 235 K/mcL (140-400); Red Blood Count 3.68 M/mcL (3.82-4.97); Red Cell Distribution Width 15.2 % (11.5-14.5); Segmented Neutrophils % 65.4 %; White Blood Count 11.6 K/mcL (4.3-11.1)
== END 2021-05-03 21:15 | disposition home or self-care (01) | DRG 807 ==
LOC: 1NENULAB → 1NENUOBS 22:13
PROVIDERS: ADMIT Advanced Practice Midwife; ATTEND Advanced Practice Midwife